=== PATIENT | male | born 2000 | race Two or more races ===

== ENCOUNTER 2019-06-30 17:46 | Emergency (ER) | payer OTHER ==
[~2019-06-30] VITALS: Ht 190.5 cm; Wt 86.5 kg
[2019-06-30 17:52] VITALS: BP 159/59
== END 2019-06-30 18:37 | disposition home or self-care (01) ==
LOC: ED 18:20
DX: S02.2XXA Fracture of nasal bones, initial encounter for closed fracture (principal); X58.XXXA Exposure to other specified factors, initial encounter; Y93.89 Activity, other specified; Y93.63 Activity, rugby; Y92.328 Other athletic field as the place of occurrence of the external cause; Y99.8 Other external cause status
CPT/HCPCS: 99281

== ENCOUNTER 2019-07-04 09:43 | Day surgery (SDC) | payer OTHER ==
[~2019-07-04] VITALS: Ht 190.5 cm; Wt 84.0 kg
[2019-07-04 10:05] VITALS: BP 138/83
[2019-07-04] MEDS ORDERED: LACTATED RINGERS 1,000 ML IV SCH (10:05)
[2019-07-04] MEDS ORDERED: FENTANYL PF 100 MCG/2ML IV PRN ×2 (10:30→12:30)
[2019-07-04] MEDS ORDERED: LABETALOL 5MG/ML, 20ML IV PRN ×2 (10:30→12:30)
[2019-07-04] MEDS ORDERED: EPHEDRINE 50 MG/ML, 1ML IVPush PRN (10:30)
[2019-07-04] MEDS ORDERED: MEPERIDINE/PF 25MG/ML,1ML IVPush PRN (10:30)
[2019-07-04] MEDS ORDERED: GABAPENTIN 300 MG CAPSULE PO ONE (10:30)
[2019-07-04] MEDS ORDERED: hydrALAzine 20 MG/ML, 1ML IV PRN ×2 (10:30→12:30)
[2019-07-04] MEDS ORDERED: PROMETHAZINE 25 MG/ML, 1ML IV PRN ×2 (10:30→12:30)
[2019-07-04] MEDS ORDERED: OXYcodone 5 MG/5 ML ORAL.SOL UDC PO PRN ×2 (10:30→12:30)
[2019-07-04] MEDS ORDERED: HYDROmorphone 2 MG/ML, 1ML IVPush PRN (10:30)
[2019-07-04] MEDS ORDERED: ACETAMINOPHEN 500 MG TABLET PO ONE (10:30)
[2019-07-04] MEDS ORDERED: ONDANSETRON 2MG/ML, 2ML IV PRN (10:30)
[2019-07-04] MEDS ORDERED: NO MEDICATIONS (10:37)
[2019-07-04] MEDS ORDERED: FENTANYL PF 100 MCG/2ML ONE (11:49)
[2019-07-04] MEDS ORDERED: MIDAZOLAM 1 MG/ML, 2ML ONE (11:49)
[2019-07-04] MEDS ORDERED: NEOSPORIN OINT, 15GM ONE (11:50)
[2019-07-04] MEDS ORDERED: EPINEPHRINE 1 MG/ML, 1ML ONE (11:51)
[2019-07-04] MEDS ORDERED: LIDOCAINE 1%, 20ML ONE (11:51)
[2019-07-04] MEDS ORDERED: OXYMETAZOLINE NASAL SPRAY 0.05%, 15ML ONE (11:51)
[2019-07-04] MEDS ORDERED: COCAINE TOPICAL SOLN 4%, 4ML ONE (11:51)
[2019-07-04] MEDS ORDERED: DIAZEPAM 5 MG/ML, 2ML IVPush PRN (12:30)
[2019-07-04] MEDS ORDERED: HYDROmorphone 1 MG/ML, 1ML INJ IVPush PRN (12:30)
[2019-07-04] MEDS ORDERED: ALBUTEROL SULFATE 2.5 MG/3 ML NPPB PRN (12:30)
[2019-07-04] MEDS ORDERED: KETOROLAC 30 MG/1 ML IV PRN (12:30)
[2019-07-04] MEDS ORDERED: ACETAMINOPHEN 325 MG TABLET PO PRN (12:30)
[2019-07-04] MEDS ORDERED: MEPERIDINE/PF 25MG/0.5ML IVPush PRN (12:30)
[2019-07-04] MEDS ORDERED: CEFAZOLIN 1,000 MG ONE (12:46)
[2019-07-04] MEDS ORDERED: NEOSTIGMINE 1 MG/ML, 10ML ONE (12:46)
[2019-07-04] MEDS ORDERED: PROPOFOL 10 MG/ML, 20ML ONE (12:46)
[2019-07-04] MEDS ORDERED: ONDANSETRON 2MG/ML, 2ML ONE (12:46)
[2019-07-04] MEDS ORDERED: DEXAMETHASONE 4 MG/ML, 1ML ONE (12:46)
[2019-07-04] MEDS ORDERED: GLYCOPYRROLATE 0.2MG/1ML, 5ML ONE (12:46)
[2019-07-04] MEDS ORDERED: SUCCINYLCHOLINE 20 MG/ML, 10ML ONE (12:46)
[2019-07-04] MEDS ORDERED: ROCURONIUM 10MG/ML,5ML ONE (12:46)
[2019-07-04] MEDS ORDERED: OXYcodone 5 MG/5 ML ORAL.SOL UDC ONE (12:49)
[2019-07-04] MEDS ORDERED: MEPERIDINE/PF 25MG/ML,1ML ONE (12:50)
== END 2019-07-04 14:25 | disposition home or self-care (01) ==
LOC: OUT 09:43
PROVIDERS: ATTEND Otolaryngology Facial Plastic Surgery
DX: S02.2XXA Fracture of nasal bones, initial encounter for closed fracture (principal); W51.XXXA Accidental striking against or bumped into by another person, initial encounter; Y93.89 Activity, other specified; Y92.89 Other specified places as the place of occurrence of the external cause; Y99.8 Other external cause status
CPT/HCPCS: 21337; J0171; J0330; J0690; J1100; J2175; J2250; J2405; J2704; J3010; J7120; J2710

== ENCOUNTER 2020-01-19 01:15 | Emergency (ER) | payer OTHER ==
[~2020-01-19] VITALS: Ht 190.5 cm; Wt 89.8 kg
[~2020-01-19 01:15] MED LIST: NO MEDICATIONS
[2020-01-19] MEDS ORDERED: LIDOCAINE 2%, 20ML INFIL ONE (02:00)
[2020-01-19] MEDS ORDERED: LIDOCAINE-MPF 2% ,5ML ONE (02:09)
--- NOTE | 2020-01-19 02:18 | NUR ---
Cleaned out lac to L chin with NS per provider order. No uncontrolled bleeding noted at this time. Pt denies pain
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
--- NOTE | 2020-01-19 03:11 | NUR ---
Med student at bedside suturing
[2020-01-19 04:00] VITALS: BP 103/59
== END 2020-01-19 04:03 | disposition home or self-care (01) ==
LOC: ED 01:46
DX: S06.0X0A Concussion without loss of consciousness, initial encounter (principal); S01.412A Laceration without foreign body of left cheek and temporomandibular area, initial encounter; Y04.0XXA Assault by unarmed brawl or fight, initial encounter; Y93.89 Activity, other specified; Y92.009 Unspecified place in unspecified non-institutional (private) residence as the place of occurrence of the external cause; Y99.8 Other external cause status
CPT/HCPCS: 12051; 70450; 70486; 72125; 99285